=== PATIENT | male | born 1985 | race Caucasian/White ===

== ENCOUNTER 2017-06-23 21:31 | Emergency (ER) | payer OTHER ==
[~2017-06-23] VITALS: Ht 175.3 cm; Wt 81.8 kg
[2017-06-23 21:57] VITALS: BP 146/97
== END 2017-06-23 23:35 | disposition home or self-care (01) ==
LOC: EMS 21:35
DX: F43.21 Adjustment disorder with depressed mood (principal)
CPT/HCPCS: 99285